=== PATIENT | male | born 1985 | race Caucasian/White ===

== ENCOUNTER → 2018-04-01 13:23 | Outpatient (CLI) | payer MEDICAID, SELFPAY | PROVIDERS: PCP Family Medicine; Visit Provider Family Medicine | DX: G47.9 Sleep disorder, unspecified (principal) | CPT/HCPCS: 95806 ==

== ENCOUNTER 2019-04-28 11:20 | Outpatient (CLI) | payer SELFPAY ==
[2019-04-28 11:51] LABS: Apearance,Urine Clear (Clear); Bilirubin,Urine 1+ (Negative); Blood, Urine Negative (Negative); Color,Urine Yellow (Yellow); Glucose,Urine (UA) Negative (Negative); Ketones,Urine Negative (Negative); PH,Urine 6.5 (5.0-8.5); Protein,Urine Negative (Negative)
[2019-04-28 11:52] LABS: UTC Leukocyte Esterase,Urine Negative (Negative); UTC Nitrate,Urine Negative (Negative); Urobilinogen,Urine 2 EU/dl (0.2)
== END 2019-04-28 14:29 | disposition home or self-care (01) ==
PROVIDERS: PCP Family Medicine; Visit Provider Nurse Practitioner Family
DX: Z02.4 Encounter for examination for driving license (principal)
CPT/HCPCS: 81003